=== PATIENT | female | born 1945 | race Caucasian/White ===

== ENCOUNTER → 2016-11-04 | Outpatient (CLI) | payer OTHER, MEDICARE | LOC: ULTRA 07:17 | DX: R16.0 Hepatomegaly, not elsewhere classified (principal); K83.1 Obstruction of bile duct; R10.9 Unspecified abdominal pain; R94.5 Abnormal results of liver function studies ==

== ENCOUNTER 2017-02-03 19:00 | Inpatient (IN) | payer OTHER, MEDICARE ==
[~2017-02-03] VITALS: Ht 175.3 cm; Wt 72.7 kg
--- NOTE | ~2017-02-03 | 2DMMODE ---
[facility] [place] [address] 2 D/M-MODE ECHOCARDIOGRAM Name: FARRAHMARK J Room #: 304-P [facility] IN .R.#: [id number] Admission: 02/03/17 Attend Phys: Richardson Solis, Discharge: Date of : 45 Date of Service: 02/07/17 1418 Report #: [id number] THIS REPORT FOR: //name// APPROVED REPORT Study performed: 02/07/2017 11:20:28 EXAM: Comprehensive 2D, Doppler, and color-flow Echocardiogram Patient Location: Echo lab Room #: [facility] Blood Pressure: 88/59 mmHg HR: 71 bpm Rhythm: NSR Other Information Study Quality: Good Indications Edema 2D Dimensions RVDd: 36.48 mm LVEF(%): 48.37 (>50%) IVSd: 9.03 (7-11mm) LVOT Diam: 19.74 (18-24mm) LVDd: 56.68 mm PWd: 10.46 (7-11mm) Ascending Ao: 39.39 (22-36mm) LVDs: 42.67 (25-40mm) Aortic Root: 32.05 mm Farah's LVEF: 48.37 % Volumes Left Atrial Volume (Systole) Single Plane 4CH: 67.86 mL Single Plane 2CH: 94.52 mL LA ESV Index: 47.00 mL/m2 Aortic Valve AoV Peak Deyvi.: 1.35 m/s AO Peak Gr.: 7.25 mmHg LVOT Max P.72 mmHg LVOT Max V: 0.96 m/s Mitral Valve E/A Ratio: 0.6 MV Decel. Time: 262.32 ms [facility] [place] [address] 2 D/M-MODE ECHOCARDIOGRAM Name: MARK YAN Room #: 304-P [facility] IN [facility].#: [id number] Admission: 02/03/17 Attend Phys: Richardson oSlis, Discharge: Date of : 45 Date of Service: 02/07/17 1418 Report #: [id number] MV E Max Deyvi.: 0.49 m/s MV A Deyvi.: 0.84 m/s MV PHT: 76.07 ms Pulmonary Valve PV Peak Deyvi.: 0.67 m/s PV Peak Gr.: 1.81 mmHg Tricuspid Valve TR Peak Deyvi.: 2.42 m/s TR Peak Gr.: 23.34 mmHg Left Ventricle Left ventricle is borderline dilated. Regional wall motion abnormalities are noted. There is normal left ventricular wall thickness. Left ventricular systolic function is mildly decreased. LVEF is 40-45%. Inferoseptal hypokinesis Grade I - abnormal relaxation pattern. Right Ventricle The right ventricle is normal size. The right ventricular systolic function is normal. Atria Left atrium is moderate to severely dilated. The right atrium size is normal. Aortic Valve Aortic valve is mildly calcified. Trace aortic regurgitation. There is no aortic valvular stenosis. Mitral Valve The mitral valve is mildly thickened. Mild to moderate mitral regurgitation. No evidence of mitral valve stenosis. Tricuspid Valve The tricuspid valve is normal in structure. There is mild to moderate tricuspid regurgitation. Estimated PAP is 23mmHg plus the right atrial pressure. Pulmonic Valve The pulmonary valve is normal in structure. There is no pulmonic valvular regurgitation. Great Vessels The aortic root is normal in size. The ascending aorta is mildly dilated. IVC is not well visualized. [facility] [address] [place] [address] 2 D/M-MODE ECHOCARDIOGRAM Name: FARRAHMARK J Room #: 304-P [facility] IN .R.#: [id number] Admission: 02/03/17 Attend Phys: Richardson Solis, Discharge: Date of : 45 Date of Service: 02/07/17 1418 Report #: [id number] Pericardium There is no pericardial effusion. <Conclusion> Left ventricle is borderline dilated. LVEF is 40-45%. Inferoseptal hypokinesis Left atrium is moderate to severely dilated. Aortic valve is mildly calcified. Trace aortic regurgitation. The mitral valve is mildly thickened. Mild to moderate mitral regurgitation. The tricuspid valve is normal in structure. There is mild to moderate tricuspid regurgitation. Estimated PAP is 23mmHg plus the right atrial pressure. The pulmonary valve is normal in structure. <ELECTRONICALLY SIGNED> By: Anand Brizuela MD 02/07/17 1418 1418 1418 Anand Brizuela MD /INF
--- NOTE | ~2017-02-03 | EKG ---
[place] [address] [address] [facility] [place] [address] ELECTROCARDIOGRAM REPORT Name: MARK YAN Room #: 304-P ADM IN M.R.#: [id number] Admission: 02/03/17 Attend Phys: Hector Araiza DO Discharge: Date of : 45 Report #: [id number] THIS REPORT FOR: //name// [facility] ED Test Date: 2017-02-03 Test Time: 19:12:09 Pat Name: MARK YAN Department: Room: 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 : 1945 Requested By: Jacque Garner Order Number: [id number] MD: Chauncey Lares Measurements Intervals [place] Rate: 94 P: 33 SD: 147 QRS: -54 QRSD: 115 T: 104 QT: 380 QTc: 476 Interpretive Statements Sinus rhythm Atrial premature complexes Left anterior fascicular block Probable anteroseptal infarct, old Cannot rule out inferior infarct, old No previous ECG available for comparison Electronically Signed On 02-05-2017 12:40:51 CDT by Chauncey Lares [email or web address] <ELECTRONICALLY SIGNED> By: Chauncey Lares MD, [facility] 02/05/17 1240 11 11 Chauncey Lares MD, [facility] /EPI
--- NOTE | ~2017-02-03 | H ---
[facility] [place] [address] HISTORY AND PHYSICAL Name: MARK YAN Room #: 304-P [facility] IN M.R.#: [id number] Admission: 02/03/17 Attend Phys: Richardson Solis MD Discharge: 02/07/17 Date of : 45 Report #: [id number] THIS REPORT FOR: //name// CC: Hecotr Araiza Richardson Solis DATE OF SERVICE: 02/03/2017 ATTENDING PHYSICIAN: Deshaun Thakur MD. PRIMARY CARE PHYSICIAN: Richardson Solis MD. CHIEF COMPLAINT: Weakness and lower extremity swelling. HISTORY OF PRESENT ILLNESS: The patient is a 71-year-old female who apparently has been having some progressive lower extremity weakness over the last few months to the point that she is mostly using a wheelchair. She normally is able to transfer herself in and out of her wheelchair and walk a few steps, but today she had a fall from her wheelchair while she was trying to transfer. She feels like her weakness is mostly in her legs. She has also had increasing bilateral lower extremity edema. Her PCP started her on Lasix about 6 weeks ago. She denies any numbness or tingling in her lower extremities. In the ER, her daughter did report to the staff that she is a daily drinker and that she has not been eating well at all lately and has been losing weight. The patient states that she is dieting and that is why she is losing weight. She has lost at least 50 pounds in the last 6 months. The patient denies any chest pain, denies any shortness of breath. She does have some numbness and tingling in her lower extremities that has been going on for some time. She had no complaints at this time. In the ER, she was noted to have some electrolyte abnormalities and because of her increasing weakness and concerns from the family, she was admitted for further treatment. PAST MEDICAL HISTORY: Hypothyroidism. PAST SURGICAL HISTORY: Cholecystectomy, appendectomy, tonsillectomy. ALLERGIES: No known drug allergies. HOME MEDICATIONS: Potassium 20 mEq daily, Lasix 40 mg daily, atropine eyedrops q.i.d., levothyroxine 100 mcg daily and vitamin D 1000 units b.i.d. SOCIAL HISTORY: The patient does admit that she drinks alcohol each evening, she says she has one glass each evening, which she estimates is around 6 ounces. She denies drinking throughout the day. She says she has had days where she does not drink and she does not experience any alcohol withdrawal symptoms. She lives at home with her spouse. She is an ex-smoker, having quit at the age of [address] [address] HISTORY AND PHYSICAL Name: MEMEYOLAMARK J Room #: 304-P [facility] IN M.R.#: [id number] Admission: 02/03/17 Attend Phys: Richardson Solis MD Discharge: 02/07/17 Date of : 45 Report #: [id number] after smoking 1 pack per day for 30 years. FAMILY HISTORY: Her mother had diabetes and thyroid cancer. Her father had CHF. REVIEW OF SYSTEMS: Twelve point review of systems was reviewed with the patient, otherwise negative unless stated in the HPI. PHYSICAL EXAMINATION: GENERAL: The patient is an alert female, in no acute distress. VITAL SIGNS: Temperature is 36.5, heart rate 97, respirations 19, blood pressure is 150/80, oxygen 97% on room air. HEENT: Right pupil is 3 mm and reactive. The left pupil is 5 mm and nonreactive, but she reports she does have a cataract there. Oral mucosa is pink and dry. NECK: No JVD noted. CARDIOVASCULAR: Normal S1, S2. No murmurs, rubs or gallops. RESPIRATORY: Breath sounds are clear bilaterally. No wheezing or rhonchi. Breathing is nonlabored. ABDOMEN: Soft, nontender, nondistended with positive bowel sounds. VASCULAR: She does have 1+ bilateral lower extremity edema. NEUROLOGIC: The patient is alert and oriented x 3. She is able to tell me where she is, the current month and year. She is able to follow commands. She is moving all extremities equally. No focal weakness noted. SKIN: She does have a few small papules on the left ankle that are possibly insect bites. There is none seen on the right lower extremity. There is significant erythema of the soles of both feet, which look like they have been peeling. There is no warmth to it, but she is tender. PSYCHIATRIC: The patient is calm and cooperative. LABORATORY DATA AND DIAGNOSTICS: 135, potassium 3.3, BUN 9, creatinine 0.7, glucose 56, magnesium 1.2. BNP 372 and UA showed 1+ ketones, negative leukocyte esterase and TSH level is 2.5, vitamin D level is 10.8 and chest x-ray showed minor atelectasis in the right lung base, there is a small nodule most likely calcified granuloma measuring 8 mm and there is no old images to compare. ASSESSMENT AND PLAN: 1. Generalized weakness. This has been somewhat progressive over the last month. We will need to have PT and OT evaluate. She may have increasing neuropathy due to some nutritional deficiencies as her vitamin D level is low. 2. Hypothyroidism. TSH level is within normal limits. Continue Synthroid. 3. Alcohol abuse. The patient does drink alcohol daily, her alcohol level is still 58. We will place her on alcohol withdrawal protocol with the banana bag and multivitamin and thiamine and monitor for any signs of withdrawal. 4. Hypokalemia, hypomagnesium and hypoglycemia. These are all being replaced. Follow labs. [facility] [place] [address] [place] [address] HISTORY AND PHYSICAL Name: MARK YAN Room #: 304-P [facility] M.R.#: [id number] Admission: 02/03/17 Attend Phys: Richardson Solis MD Discharge: 02/07/17 Date of : 45 Report #: [id number] 5. Rash to bilateral feet. This really does not look like any significant cellulitis. She is afebrile without leukocytosis, so we will hold off on any antibiotics at this time. 6. Deep venous thrombosis prophylaxis. Place sequential compression devices. We will continue to follow the patient closely throughout the hospitalization and make changes based on clinical status. <ELECTRONICALLY SIGNED> By: RYAN Das 02/10/17 0659 0618 0843 RYAN Das /nt
[2017-02-03 19:04] VITALS: BP 150/80
[2017-02-03] MEDS ORDERED: VITAMIN D1000 UNI1 PO (19:07)
[2017-02-03] MEDS ORDERED: POTASSIUM20 PO (19:07)
[2017-02-03] MEDS ORDERED: LASIX 40 MG TAB40 M2 PO (19:07)
[2017-02-03] MEDS ORDERED: LEVOTHYROXINE 0.1 MG PO (19:07)
[2017-02-03] MEDS ORDERED: ATROPINE 1% EYE D11 OPHTHALMIC (19:08)
[2017-02-03 19:23] LABS: BASOPHILS 1.1 % (0.0-2.0); EOSINOPHILS 0.5 % (0.0-3.0); HEMATOCRIT 31.6 % (37.0-47.0); HEMOGLOBIN 11.1 gm/dL (12.0-15.0); LYMPHOCYTES 23.7 % (24.0-44.0); MANUAL DIFF NO; MCV 99.9 fL (80.0-100.0); MONOCYTES 5.9 % (1.0-8.0); PLATELET COUNT 250 thou/uL (150-400); POLYS 68.8 % (36.0-66.0); RBC 3.16 mil/uL (4.20-5.00); RDW 18.4 % (10.5-14.5); WBC 8.7 thou/uL (4.0-11.0)
[2017-02-03 19:31] LABS: CALCIUM 8.7 mg/dL (8.5-10.1); CREATININE 0.7 mg/dL (0.6-1.0); POTASSIUM 3.3 mmol/L (3.5-5.1)
[2017-02-03 19:32] LABS: URINE BLOOD NEGATIVE (Negative); URINE COLOR YELLOW; URINE GLUCOSE-RANDOM* NEGATIVE (Negative); URINE KETONES 1+ (Negative); URINE LEUKOCYTES-REFLEX NEGATIVE (Negative); URINE PROTEIN (DIPSTICK) TRACE (Negative); URINE UROBILINOGEN >= 8.0 E.U./dl (0.2-1.0)
[2017-02-03 19:36] LABS: URINE BILIRUBIN NEGATIVE (Negative)
[2017-02-03 19:43] LABS: MAGNESIUM 1.2 mg/dL (1.8-2.4)
[2017-02-04 04:25] VITALS: BP 105/57
[2017-02-04 05:11] LABS: ALBUMIN 2.2 g/dL (3.4-5.0); CALCIUM 7.6 mg/dL (8.5-10.1); CREATININE 0.7 mg/dL (0.6-1.0); DIRECT BILIRUBIN 2.1 mg/dL (<0.1-0.3); MAGNESIUM 1.7 mg/dL (1.8-2.4); TOTAL BILIRUBIN 3.5 mg/dL (<0.1-1.0); TOTAL PROTEIN 5.7 g/dL (6.4-8.2)
[2017-02-04 05:22] LABS: POTASSIUM 2.1 mmol/L (3.5-5.1)
[2017-02-04 08:12] VITALS: BP 119/76
[2017-02-04 12:02] VITALS: BP 130/72
[2017-02-04 15:30] VITALS: BP 114/62
[2017-02-04 19:26] VITALS: BP 101/73
[2017-02-05 03:55] VITALS: BP 90/57
[2017-02-05 06:13] LABS: CALCIUM 8.3 mg/dL (8.5-10.1); CREATININE 0.9 mg/dL (0.6-1.0); POTASSIUM 3.4 mmol/L (3.5-5.1)
[2017-02-05 07:25] VITALS: BP 141/62
[2017-02-05 08:03] VITALS: BP 141/62
[2017-02-05 11:10] VITALS: BP 98/63
[2017-02-05 12:05] LABS: MAGNESIUM 1.9 mg/dL (1.8-2.4); POTASSIUM 3.5 mmol/L (3.5-5.1)
[2017-02-05 19:35] VITALS: BP 108/77
[2017-02-06 03:29] LABS: CALCIUM 8.1 mg/dL (8.5-10.1); CREATININE 0.8 mg/dL (0.6-1.0)
[2017-02-06 03:30] LABS: POTASSIUM 4.6 mmol/L (3.5-5.1)
[2017-02-06 03:50] VITALS: BP 101/69
[2017-02-06 09:07] VITALS: BP 119/76
[2017-02-06 12:44] VITALS: BP 116/75
[2017-02-06 17:53] VITALS: BP 86/54
[2017-02-06 18:03] VITALS: BP 93/65
[2017-02-06 19:03] VITALS: BP 86/50
[2017-02-07 04:11] VITALS: BP 146/74
[2017-02-07] MEDS ORDERED: MELATONIN5 M1 PO (07:35)
[2017-02-07] MEDS ORDERED: VITAMIN B-1100 M2 PO (07:35)
[2017-02-07] MEDS ORDERED: PEPCID20 MG PO (07:35)
[2017-02-07] MEDS ORDERED: PRENATAL PO (07:36)
[2017-02-07 07:56] VITALS: BP 128/87
[2017-02-07 09:41] LABS: ALBUMIN 2.3 g/dL (3.4-5.0); CALCIUM 8.8 mg/dL (8.5-10.1); CREATININE 0.8 mg/dL (0.6-1.0); MAGNESIUM 1.5 mg/dL (1.8-2.4); POTASSIUM 4.9 mmol/L (3.5-5.1); TOTAL BILIRUBIN 1.5 mg/dL (<0.1-1.0); TOTAL PROTEIN 5.6 g/dL (6.4-8.2)
[2017-02-07 11:34] VITALS: BP 88/59
[2017-02-07] MEDS ORDERED: MAGNESIUM OXID400 MG PO (15:02)
== END 2017-02-07 16:56 | DRG 641 ==
LOC: ER 19:00 → 3N 20:48 → EROBS 20:48 → 3N 21:57
PROVIDERS: Emergency Medicine; Family Medicine; Internal Medicine Endocrinology, Diabetes & Metabolism; Internal Medicine Geriatric Medicine; Nurse Practitioner Acute Care
DX: E87.6 Hypokalemia (principal); E44.1 Mild protein-calorie malnutrition; R53.81 Other malaise; E87.1 Hypo-osmolality and hyponatremia; R53.1 Weakness; F10.10 Alcohol abuse, uncomplicated; R21 Rash and other nonspecific skin eruption; E83.42 Hypomagnesemia; E03.9 Hypothyroidism, unspecified; E16.2 Hypoglycemia, unspecified; W18.39XA Other fall on same level, initial encounter; Y93.89 Activity, other specified; Z90.49 Acquired absence of other specified parts of digestive tract; Z83.3 Family history of diabetes mellitus; Z80.8 Family history of malignant neoplasm of other organs or systems; Z82.49 Family history of ischemic heart disease and other diseases of the circulatory system; Y92.89 Other specified places as the place of occurrence of the external cause; Y99.8 Other external cause status
CPT/HCPCS: 10096

== ENCOUNTER 2017-04-26 05:32 | Day surgery (SDC) | payer OTHER, MEDICARE ==
[~2017-04-26] VITALS: Ht 175.3 cm; Wt 69.2 kg
--- NOTE | ~2017-04-26 | S ---
[facility] [place] [address] SURGICAL PATH RPT PROCEDURE Name: MARK YAN Room #: DEP [facility] M.R.#: [id number] Admission: 04/26/17 Date of : 45 Discharge: 04/26/17 Report #: [id number] Path Case #: [id number] PATHOLOGY REPORT COLLECTION DATE: 04/26/2017 RECEIVED DATE: 04/26/2017 SUBMITTING PHYS: Dr. Bill Espitia OTHER PHYS: Dr. Joce Solis SPECIMEN(S) RECEIVED: A.Hernia sac * * * * * * * * * * * * FINAL DIAGNOSIS: Fibroadipose tissue,"hernia sac", repair: - Reactive changes along with congestion compatible with a hernia sac. PATHOLOGIST: Ankita Mcgowan M.D. REPORT ELECTRONICALLY SIGNED BY: Ankita Mcgowan M.D. DATE/TIME: 04/27/2017 15:24 * * * * * * * * * * * * GROSS PATHOLOGY: Received in formalin labeled "Mark Yan, hernia sac," is a piece of fibroadipose tissue measuring 3.4 x 2.0 x 1.4 cm. No nodules or lesions are identified. Patient Services Technician tissue is submitted in cassette A1. (KAH; 04/26/2017) CLINICAL HISTORY: Right inguinal hernia INITIAL CPT CODE(S): A; 19090 Professional services performed by [facility] at [facility] [address], [place] [address] Technical services performed by [facility] at [address] [place] [address], [address], [place] [address]. [facility] [address] [place] [address] SURGICAL PATH RPT PROCEDURE Name: MARK YAN Room #: DEP [facility] Luca.#: [id number] Admission: 04/26/17 Date of : 45 Discharge: 04/26/17 Report #: [id number] Path Case #: [id number] [address] PHONE: [phone] DIRECTOR: Darenll Villafana M.D. * * * END OF REPORT * * *
--- NOTE | ~2017-04-26 | O ---
[facility] [place] [address] OPERATIVE REPORT Name: MARK YAN Room #: DEP [facility].#: [id number] Admission: 04/26/17 Attend Phys: Bill Espitia MD, F Discharge: 04/26/17 Date of : 45 Report #: [id number] THIS REPORT FOR: //name// CC: Bill Solis MD DATE OF SERVICE: 04/26/2017 PREOPERATIVE DIAGNOSIS: Right inguinal hernia, reducible. POSTOPERATIVE DIAGNOSIS: Right indirect inguinal hernia. PROCEDURE: Open repair of right indirect inguinal hernia with Surgimesh. SURGEON: Bill Espitia M.D. WING MAILER MACHINE OPERATOR: Joce Edward M.D. INDICATIONS: A 72-year-old lady that has a 2-month history of progressive enlargement of a bulging mass in the right inguinal canal. This has been reducible and on recent examination by her primary care physician, he indicated the need for repair. She denies bowel symptomatology. OPERATIVE PROCEDURE: The patient had a thorough discussion of the procedure, benefits and risks. She gave informed consent to proceed. She was brought to the operating room suite and had satisfactory induction of general endotracheal anesthesia. The patient's entire lower abdomen was prepped and draped in usual sterile procedure with DuraPrep solution. Draping was completed. An Ioban was utilized in the draping procedure. After draping was completed, an appropriate timeout was then performed. Naropin 0.5% plain was injected at the level of the inguinal canal. A 6-7 cm transverse incision was performed. The external oblique was visualized. Naropin was placed under the external oblique and then the external oblique was opened to the level of the external ring. The structures at the level of the internal ring including the round ligament were also controlled. A large indirect hernia sac was present. This was dissected free from the pubic tubercle back to the level of the internal ring. The indirect hernia sac was opened and some fat was reduced back into the peritoneal cavity. The hernia sac was circumferentially ligated in a pursestring manner with 2-0 Prolene suture times 2. The redundant hernia sac was transected and sent for histologic evaluation. The repaired ligated hernia sac was easily reduced at the level of the internal ring. A piece of Surgimesh was fashioned to approximate the floor of the inguinal canal. It was sutured in place beginning at the pubic tubercle, sutured medially to the lateral border of the rectus sheath and the transversalis fascia. Laterally, the mesh was sutured to the symphysis pubis, the John's ligament and the inguinal ligament [address] [address] OPERATIVE REPORT Name: MARK YAN Room #: DEP [facility] Awilda#: [id number] Admission: 04/26/17 Attend Phys: Bill Espitia MD, F Discharge: 04/26/17 Date of : 45 Report #: [id number]. The patch was completely sutured medially and laterally to the underlying abdominis muscle. The external oblique muscle was then reapproximated with a running 2-0 PDS suture. Jacklyn's fascia was approximated with running 3-0 Vicryl, superficial subcutaneous tissue approximated with running 3-0 Vicryl. The skin margins were then approximated with subcuticular 4-0 Monocryl. Dermabond was applied. The estimated blood loss is less than 5 mL. All sponge and needle counts were correct at the end of the procedure. The patient subsequently returned to recovery room in stable and satisfactory condition. She was able to be discharged from recovery room with pain medicine and antiemetic medications. She will return to the office in 2 weeks for followup care. By: 1751 [id number] Bill Espitia MD, FACS /nt
[~2017-04-26 05:32] MED LIST: ATROPINE 1% EYE D11 OPHTHALMIC; B-121000 MC2 PO; DUREZOL5 ML OPHTHALMIC; FA-80.8 MG PO; LASIX 40 MG TAB40 M2 PO; LEVOTHYROXINE 0.1 MG PO; MAGNESIUM OXID400 MG PO; MELATONIN5 M1 PO; PEPCID20 MG PO; POTASSIUM20 PO; PRED FORTE 1% EY5 M1 OP; PRENATAL PO; PROBIOTIC1 EAC1 PO; VALACYCLOVIR1000 MG PO; VITAMIN B-1100 M2 PO; VITAMIN D 5050000 I1 PO; VITAMIN D1000 UNI1 PO
[2017-04-26 06:50] VITALS: BP 143/93
[2017-04-26 06:50] LABS: HEMOGLOBIN 10.9 gm/dL (12.0-15.0)
[2017-04-26 10:26] VITALS: BP 143/93
== END 2017-04-26 10:42 | disposition home or self-care (01) ==
LOC: TBA 05:32 → OR 05:32
PROVIDERS: Surgery
DX: K40.90 Unilateral inguinal hernia, without obstruction or gangrene, not specified as recurrent (principal); E03.9 Hypothyroidism, unspecified; Z87.891 Personal history of nicotine dependence; Z90.49 Acquired absence of other specified parts of digestive tract; Z98.890 Other specified postprocedural states
CPT/HCPCS: 50010; 50101; 50386; 50403; 50788; 51412; 54118; 56524; 56525; 56526; 62110; 62900; 70005

== ENCOUNTER → 2017-05-26 | Outpatient (CLI) | payer OTHER, MEDICARE | LOC: RAD 12:27 | DX: Z01.818 Encounter for other preprocedural examination (principal) ==

== ENCOUNTER 2017-06-06 05:23 | Inpatient (IN) | payer OTHER, MEDICARE ==
[2017-05-31 13:20] LABS: HEMATOCRIT 33.6 % (37.0-47.0); HEMOGLOBIN 11.3 gm/dL (12.0-15.0); MCH 32.9 pg (26.0-34.0); MCHC 33.6 g/dL (28.0-37.0); MCV 98.2 fL (80.0-100.0); RBC 3.42 mil/uL (4.20-5.00); RDW 13.7 % (10.5-14.5); WBC 6.3 thou/uL (4.0-11.0)
[2017-05-31 13:24] LABS: URINE BILIRUBIN NEGATIVE (Negative); URINE BLOOD NEGATIVE (Negative); URINE COLOR YELLOW; URINE GLUCOSE-RANDOM* NEGATIVE (Negative); URINE KETONES NEGATIVE (Negative); URINE LEUKOCYTES-REFLEX 1+ (Negative); URINE PROTEIN (DIPSTICK) NEGATIVE (Negative); URINE SPECIFIC GRAVITY >= 1.030 (1.003-1.035); URINE UROBILINOGEN 0.2 E.U./dl (0.2-1.0)
[2017-05-31 13:28] LABS: SQUAMOUS >10 Many /LPF (0-3); URINE WBC-REFLEX 6-15 Few /HPF (0-5)
[2017-05-31 13:28] LABS: ALBUMIN 3.9 g/dL (3.4-5.0)
[2017-05-31 13:29] LABS: CASTS None Seen /LPF (None Seen); CRYSTALS None Seen /LPF (None Seen); URINE RBC None Seen /HPF (0-2)
[2017-05-31 13:33] LABS: INR 1.1; PROTIME 11.1 Seconds (9.3-11.4)
[2017-06-06] VITALS (9 sets, daily range): BP systolic 94–130; BP diastolic 48–84
[~2017-06-06] VITALS: Ht 175.3 cm; Wt 67.6 kg
--- NOTE | ~2017-06-06 | EKG ---
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 : 1945 Requested By: Chris Wilcox Order Number: [id number] MD: Chauncey Lares Measurements Intervals [place] Rate: 65 P: 69 MA: 179 QRS: 83 QRSD: 118 T: 50 QT: 437 QTc: 455 Interpretive Statements Sinus rhythm Nonspecific intraventricular conduction delay Compared to ECG 02/03/2017 19:12:09 Atrial premature complex(es) no longer present Left anterior fascicular block no longer present Electronically Signed On 06-01-2017 7:53:17 CDT by Chauncey Lares [email or web address] <ELECTRONICALLY SIGNED> By: Chauncey Lares MD, [facility] 06/01/17 0753 1305 1305 Chauncey Lares MD, [facility] /EPI
--- NOTE | ~2017-06-06 | O ---
[facility] [place] [address] OPERATIVE REPORT Name: MARK YAN Room #: 407-P [facility] IN M.R.#: [id number] Admission: 06/06/17 Attend Phys: Chris Wilcox MD Discharge: 06/09/17 Date of : 45 Report #: [id number] THIS REPORT FOR: //name// CC: Richardson Wilcox DATE OF SERVICE: 06/06/2017 PREOPERATIVE DIAGNOSIS: Left hip degenerative joint disease, severe. POSTOPERATIVE DIAGNOSIS: Left hip degenerative joint disease, severe. PROCEDURE: Left total hip arthroplasty. SURGEON: Chris Wilcox MD. SHEET METAL LAYOUT WORKER: Lanette Snider. ANESTHETIC: General. INDICATIONS: See [facility] H and P. IMPLANTS UTILIZED: Used a Roxanna hip system. We used a Secur-Fit Max hip stem size 8. We used a 132 degree neck angle. We used a Tritanium hemispherical cluster shell with a Trident X3 elevated rim insert and a 36 mm anatomic head, +2.5 neck length. DESCRIPTION OF PROCEDURE: After adequate general anesthesia had been obtained, the patient was placed in lateral decubitus position. Hip and lower extremity was prepped and draped in the usual meticulous sterile fashion. Posterolateral incision was made, subQ divided sharply. Hemostasis obtained with electrocautery. The IT band gluteal fascia was divided. This layer was retracted with a Charnley retractor. Hip was internally rotated. The external rotators were detached at their insertion, tagged and retracted posteriorly. Capsular incision was made and likewise was tagged and retracted posteriorly. Hip was then dislocated. Soft tissue was removed from the base of the neck. Starter awl placed at the base of neck and advanced to canal. Canal was sequentially reamed to a size 8. Neck osteotomy performed. Attention directed to the acetabulum, was circumferentially exposed. Labrum was excised. Reamers were used to sequentially ream the acetabulum to a size 54. A good press fit was obtained with a 54 trial, so we reamed to 55, irrigated copiously and placed the shell in the appropriate position. The hip was irrigated once again and the liner placed, elevated the portion posteriorly. [facility] [address] [place] [address] OPERATIVE REPORT Name: MARK YAN Room #: 407-P [facility] IN M.R.#: [id number] Admission: 06/06/17 Attend Phys: Chris Wilcox MD Discharge: 06/09/17 Date of : 45 Report #: [id number] Attention was redirected to the femur. Femur was sequentially broached to a size 8 and excellent torsional stability was obtained. Trial reduction was performed with a +2.5 neck length reapproximation of leg lengths and had excellent stability parameters. We then removed the trial components, irrigated copiously, placed the stem and impacted the head. The hip was then reduced. At this point, we repaired the capsule and to the trochanter by placing the sutures through drill holes in the trochanter and tying them over a bone bridge. Drains were placed deep and superficial. The IT band gluteal fascia closed with combination of interrupted naobyx-hw-vwsmt #1 Vicryl as well as running #1 Tevdek. SubQ was closed with 2-0 Monocryl, skin closed with mary. Sterile compressive dressing was applied. <ELECTRONICALLY SIGNED> By: Chris Wilcox MD 06/13/17 1411 1226 1332 Chris Wilcox MD /nt
[2017-06-07 04:06] VITALS: BP 102/54
[2017-06-07 06:22] LABS: HEMATOCRIT 27.6 % (37.0-47.0); HEMOGLOBIN 9.5 gm/dL (12.0-15.0); MCH 33.3 pg (26.0-34.0); MCHC 34.6 g/dL (28.0-37.0); MCV 96.3 fL (80.0-100.0); RBC 2.86 mil/uL (4.20-5.00); RDW 13.3 % (10.5-14.5); WBC 6.8 thou/uL (4.0-11.0)
[2017-06-07 07:35] VITALS: BP 94/56
[2017-06-07 21:00] VITALS: BP 111/65
[2017-06-07 23:29] VITALS: BP 131/86
[2017-06-08 03:40] VITALS: BP 119/66
[2017-06-08 06:29] LABS: HEMATOCRIT 28.4 % (37.0-47.0); HEMOGLOBIN 9.9 gm/dL (12.0-15.0); MCH 33.4 pg (26.0-34.0); MCV 95.4 fL (80.0-100.0); RBC 2.98 mil/uL (4.20-5.00); WBC 9.4 thou/uL (4.0-11.0)
[2017-06-08 08:42] VITALS: BP 113/72
[2017-06-08 16:00] VITALS: BP 111/50
[2017-06-08 18:21] VITALS: BP 111/50
[2017-06-08 19:46] VITALS: BP 104/53
[2017-06-09 04:53] LABS: HEMATOCRIT 29.8 % (37.0-47.0); HEMOGLOBIN 10.2 gm/dL (12.0-15.0); MCH 32.9 pg (26.0-34.0); MCHC 34.3 g/dL (28.0-37.0); MCV 95.8 fL (80.0-100.0); RBC 3.11 mil/uL (4.20-5.00); WBC 10.1 thou/uL (4.0-11.0)
[2017-06-09 06:08] VITALS: BP 105/63
[2017-06-09 08:08] VITALS: BP 109/55
[2017-06-09 10:15] VITALS: BP 111/50
[2017-06-09 10:34] VITALS: BP 111/50
[2017-06-09] MEDS ORDERED: XARELTO10 MG PO (11:14)
[2017-06-09 11:25] VITALS: BP 111/50
[2017-06-09 13:41] VITALS: BP 111/50
== END 2017-06-09 14:03 | disposition home health service (06) | DRG 470 ==
LOC: 4N 05:23 → TBA 05:23 → PRE 12:01 → 4N 14:13 → ENTRNSPT 06-09 13:54 → EDTRNSPTSTS 06-09 13:57 → 4N 06-09 14:03
PROVIDERS: Orthopaedic Surgery
PROC: 0SRB0JZ Replacement of Left Hip Joint with Synthetic Substitute, Open Approach (ICD-10-PCS; principal; 2017-06-06)
DX: M16.12 Unilateral primary osteoarthritis, left hip (principal)
CPT/HCPCS: 10790; 50010; 50101; 50382; 50414; 50455; 50855; 50939; 51412; 51771; 53000; 55388; 56521; 56525; 56527; 56530; 57095; 62110; 62900; 70005

== ENCOUNTER 2017-12-23 06:21 | Inpatient (IN) | payer OTHER, MEDICARE ==
[~2017-12-23] VITALS: Ht 175.3 cm; Wt 70.3 kg
--- NOTE | ~2017-12-23 | EKG ---
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 : 1945 Requested By: Taye Godinez Order Number: [id number] MD: Chauncey Lares Measurements Intervals [place] Rate: 60 P: 29 NC: 180 QRS: -49 QRSD: 116 T: -9 QT: 431 QTc: 431 Interpretive Statements Sinus rhythm Left anterior fascicular block Left ventricular hypertrophy Borderline T abnormalities, inferior leads Compared to ECG 05/31/2017 13:05:27 Left anterior fascicular block now present Left ventricular hypertrophy now present T-wave abnormality now present Electronically Signed On 12-24-2017 13:41:37 CDT by Chauncey Lares [email or web address] <ELECTRONICALLY SIGNED> By: Chauncey Lares MD, [facility] 12/24/17 1341 0658 0658 Chauncey Lares MD, [facility] /EPI
--- NOTE | ~2017-12-23 | HC ---
[facility] [place] [address] CONSULTATION Name: MARK YAN Room #: 408-P [facility] IN M.R.#: [id number] Admission: 12/23/17 Attend Phys: Toño Samuel DO Discharge: Date of : 45 Report #: [id number] THIS REPORT FOR: //name// CC: Toño Solis MD DATE OF SERVICE: 12/23/2017 REASON FOR CONSULTATION: The patient is a 72-year-old woman with abdominal pain, nausea and vomiting. HISTORY OF PRESENT ILLNESS: This 72-year-old woman has been seen by Dr. Richardson Solis. Her major problem has been her left eye, which may have a toxoplasmosis infection. There is also concern of an ocular stroke about a year ago. She has been on fairly complex treatment with multiple medications including immune-suppressing agents as well as antibiotics. She was in usual state of health until the past 2-3 days when she developed some vague nausea symptoms. However, she was able to eat. She did not have any fever, chills or diarrhea. This morning, she awoke and had vomiting, had multiple episodes of emesis of nonbloody material. Due to these symptoms, in fact, she felt poorly. She presented to the Emergency Room at [facility]. LABORATORY DATA: Showed sodium of 141, potassium of 3.4, chloride of 103, CO2 of 27, BUN of 44 and creatinine of 4.4. Glucose was 108, calcium 9.5. Liver function studies were completely normal. Troponin less than 0.04, albumin 3.8, lipase was 1870. TSH was 1.884. White count was 9.6, hemoglobin of 12.1 with MCV of 94.9, platelet of 188,000. Her elevated creatinine was noted; interestingly, there was no prior history of kidney disease. However, she has been using 40 mg of furosemide daily for swelling in her ankles for the past 8 months. She has an elevated lipase of 1800; however, there is no history of pancreatitis. She consumed alcohol in the past and quit a number of years ago because she was told she was drinking too much. She did have evidence of fatty liver, but she has never had pancreatitis. She did have some vague abdominal pain this morning, mostly in the right lower abdomen just felt like an achy sensation, but not a severe pain. She did not have any back pain. There is no family history of pancreatitis or pancreatic cancer. PAST MEDICAL HISTORY: She is noted to be hypothyroid. 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 She has had degenerative joint disease. [address] [address] CONSULTATION Name: MARK YAN Room #: 408-P [facility] IN M.R.#: [id number] Admission: 12/23/17 Attend Phys: Toño Samuel DO Discharge: Date of : 45 Report #: [id number] PAST SURGICAL HISTORY: Cholecystectomy, appendectomy, T and A, teeth extraction and dentures, tubal ligation, right inguinal hernia repair and recent left hip replacement. ALLERGIES: She reports no known drug allergies. HOME MEDICATIONS: Include atropine eyedrops twice daily to left eye; vitamin D3; clindamycin 300 mg 4 times daily; vitamin B12; furosemide 40 mg daily; Lactobacillus daily; 20 mg daily; levothyroxine 0.1 mg daily; magnesium oxide 400 mg daily; potassium with 40 mEq daily; prednisolone eye drops every 6-8 hours; prednisone 20 mg daily, started about 6 days ago for her eye; vitamin; Daraprim; sulfadiazine 1000 mg 4 times daily; vitamin B 100 mg daily; sodium chloride eye drops. FAMILY HISTORY: Brother had colon cancer at age 55. No family history of pancreatic cancer. SOCIAL HISTORY: , has 4 children, alive and well. She quit smoking more than a year ago. She quit using alcohol more than a year ago. REVIEW OF SYSTEMS: GENERAL: No change in weight, fever or chills. CENTRAL NERVOUS SYSTEM: Possible ocular stroke. No other known strokes, weakness or numbness. HEENT: Possibly toxoplasmosis left eye and near blindness right eye due to lazy eye as a child. PULMONARY: Former smoker, no cough, pneumonia or tuberculosis. CARDIOVASCULAR: No chest pain, chest tightness or palpitations. GASTROINTESTINAL: No dysphagia or odynophagia. She did not have any hematemesis. Bowel habits have been regular. No rectal bleeding or melena. She has never had a colonoscopy. GENITOURINARY: No previous kidney problems, kidney stones, urinary tract infections. Creatinine was normal in the past. GYNECOLOGIC: No breast problems, vaginal bleeding or discharges. MUSCULOSKELETAL: Degenerative joint disease with total hip replacement. SKIN: Without rashes. PSYCHIATRIC: No depression, anxiety or bipolar illness. ENDOCRINE: Hypothyroid, not aware of diabetes problems. HEMATOLOGIC: No bleeding, bruising or malignancies. PHYSICAL EXAMINATION: RESPIRATORY: Well-developed, well-nourished, overweight woman, in no acute distress. VITAL SIGNS: Blood pressure 129/70, pulse 67. HEENT: Anicteric. Left pupil is dilated. It is noted she uses atropine [address] [place] [address] CONSULTATION Name: MARK YAN Room #: [facility]-P [facility] IN M.R.#: [id number] Admission: 12/23/17 Attend Phys: Toño Samuel DO Discharge: Date of : 45 Report #: [id number] eyedrops. Oropharynx is clear. She has dentures. NECK: Supple without thyromegaly. CHEST: Clear. HEART: Regular rate and rhythm, normal S1 and S2. ABDOMEN: Overweight. Normal bowel sounds, soft, nontender, without hepatosplenomegaly or masses. RECTAL: Not done. EXTREMITIES: Without cyanosis, clubbing, edema. NEUROLOGIC: Oriented to person, place, and time. Moves all 4 extremities well. ASSESSMENT: 1. Nausea and vomiting possibly due to gastroenteritis. 2. Elevated lipase, doubt employee's representative of acute pancreatitis. 3. Elevated creatinine, likely prerenal due to recurrent vomiting as well as long-term use of Lasix. This may also account for elevated lipase. 4. Toxoplasmosis of the left eye. 5. Blindness. 6. Family history of colon cancer, brother age 55. RECOMMENDATIONS: 1. Agree with hydration. 2. We will obtain an abdominal ultrasound at this point, consider a CT or MRCP depending on the clinical course. 3. Colonoscopy due to family history of colon cancer, would do as an outpatient after the acute episode has resolved. <ELECTRONICALLY SIGNED> By: Branden Jara MD 12/24/17 1408 [id number] Branden Jara MD /nt
--- NOTE | ~2017-12-23 | HC ---
[facility] [place] [address] CONSULTATION Name: MARK YAN Room #: 408-P [facility] IN ..#: [id number] Admission: 12/23/17 Attend Phys: Richardson Solis MD Discharge: 12/25/17 Date of : 45 Report #: [id number] THIS REPORT FOR: //name// CC: Toño Solis MD DATE OF SERVICE: 12/24/2017 ATTENDING PHYSICIAN: Toño Samuel DO REASON FOR CONSULTATION: Left ocular toxoplasmosis. HISTORY OF PRESENT ILLNESS: The patient is a 72-year-old white woman admitted through the Emergency Room with history of nausea and vomiting, abdominal discomfort that has improved today. The patient had developed acute kidney injury that has improved hydration. The patient relates that 6 months ago or thereabouts, she had a left eye biopsy at [facility] that revealed toxoplasmosis. For the last 6 weeks, she had been on treatment with Daraprim 50 mg p.o. daily, sulfadiazine 1 gram p.o. q.i.d., leucovorin 20 mg p.o. daily, clindamycin 150 mg [address] Felix, rand maker. The patient's eyesight on the left is almost nil. She is also using prednisolone eye drops to the left eye. PAST MEDICAL HISTORY: Hypothyroidism. Left eye toxoplasmosis. Cholecystectomy. Appendectomy. Teeth extraction. Tubal ligation. Right inguinal hernia repair. DRUG ALLERGIES: None listed. MEDICATIONS: She is on treatment with Daraprim 50 mg daily, leucovorin 20 mg daily, cholecalciferol, Lactobacillus acidophilus, vitamins, thiamine 100 mg daily, furosemide, potassium chloride, pantoprazole, levothyroxine, sulfadiazine, prednisolone eyedrops, clindamycin 300 mg p.o. q.i.d., magnesium supplementation, fentanyl p.r.n., acetaminophen p.r.n., prednisone 40 mg p.o. daily. She is on intravenous fluids. SOCIAL HISTORY: See H and P, old records. FAMILY HISTORY: See H and P, old records. REVIEW OF SYSTEMS: Nausea, vomiting, abdominal discomfort, improved. PHYSICAL EXAMINATION: GENERAL: Well-developed woman, not toxic looking. VITAL SIGNS: Temperature 99, pulse 68, respirations 18, BP 134/78. [address] [address] CONSULTATION Name: MARK YAN Room #: 408-P [facility] IN M.R.#: [id number] Admission: 12/23/17 Attend Phys: Richardson Solis MD Discharge: 12/25/17 Date of : 45 Report #: [id number] HEENT: Within range. Decreased eyesight, left. NECK: Supple, no thyromegaly. LUNGS: Clear. HEART: S1, S2. BREASTS: Deferred. ABDOMEN: Soft, no masses or megaly. PELVIC AND RECTAL: Deferred. EXTREMITIES: Normal. LABORATORY DATA: Sodium 141, potassium 3.4, BUN 44, creatinine 4.4. Renal function studies today revealed BUN to be 38, creatinine 3.9. The lipase was 1870 yesterday, normal today. Albumin 3.8 on admission, 2.9 g today. WBC 6.4, hemoglobin 10.7, platelets 154,000. White blood cell count differential normal, possibly dealing with dehydration. ASSESSMENT: 1. Nausea, vomiting, question etiology. 2. Prerenal azotemia. 3. History of left eye toxoplasmosis. SUGGESTIONS: Recommend to hold sulfadiazine, Daraprim and clindamycin. The patient will be reevaluated in the morning if renal function continues to improve. Dr. Fish will reevaluate the patient and establish need for continuation of treatment with anti-toxoplasma medications. Dr. Samuel, thank you for requesting my suggestions. <ELECTRONICALLY SIGNED> By: Reuben Aguilera MD 01/02/18 1026 [id number] Reuben Aguilera MD /nt
[~2017-12-23 06:21] MED LIST changes: +XARELTO10 MG PO
[2017-12-23 06:29] VITALS: BP 131/74
[2017-12-23] MEDS ORDERED: SULFADIAZINE500 MG PO (06:32)
[2017-12-23] MEDS ORDERED: PREDNISONE 20 M20 MG PO (06:33)
[2017-12-23] MEDS ORDERED: DARAPRIM25 MG PO (06:33)
[2017-12-23] MEDS ORDERED: LEUCOVORIN CALC10 MG PO (06:34)
[2017-12-23] MEDS ORDERED: CLEOCIN HCL150 MG PO (06:34)
[2017-12-23] MEDS ORDERED: PRED-FORTE OPHTH1 M1 (06:36)
[2017-12-23] MEDS ORDERED: [UNRECOGNIZED DRUG - OTHER] OPHTHALMIC (06:58)
[2017-12-23 07:00] LABS: ABSOLUTE NEUTROPHILS 7.7 thou/uL (1.4-8.2); ANION GAP 11 mmol/L (7-16); BASOPHILS 0.6 % (0.0-2.0); BUN 44 mg/dL (7-18); CALCIUM 9.5 mg/dL (8.5-10.1); CHLORIDE 103 mmol/L (98-107); CO2 27 mmol/L (21-32); CREATININE 4.4 mg/dL (0.6-1.0); EOSINOPHILS 0.3 % (0.0-3.0); GLUCOSE 108 mg/dL (74-106); HEMATOCRIT 35.9 % (37.0-47.0); HEMOGLOBIN 12.1 gm/dL (12.0-15.0); LYMPHOCYTES 12.8 % (24.0-44.0); MCHC 33.8 g/dL (28.0-37.0); MCV 94.9 fL (80.0-100.0); MONOCYTES 5.7 % (1.0-8.0); PLATELET COUNT 188 thou/uL (150-400); POLYS 80.6 % (36.0-66.0); POTASSIUM 3.4 mmol/L (3.5-5.1); RBC 3.78 mil/uL (4.20-5.00); RDW 16.4 % (10.5-14.5); SODIUM 141 mmol/L (136-145); WBC 9.6 thou/uL (4.0-11.0)
[2017-12-23] MEDS ORDERED: ATROPINE 0.01%-10 ML OPHTHALMIC (07:01)
[2017-12-23] MEDS ORDERED: CENTRUM SILVER1 EAC2 PO (07:07)
[2017-12-23] MEDS ORDERED: PROBIOTIC1 EAC1 PO (07:08)
[2017-12-23 07:09] LABS: ALBUMIN 3.8 g/dL (3.4-5.0); LIPASE 1870 U/L (73-393); SGOT 23 U/L (15-37); SGPT 18 U/L (30-65); TOTAL BILIRUBIN 0.3 mg/dL (<0.1-1.0); TOTAL PROTEIN 7.2 g/dL (6.4-8.2); TROPONIN-I < 0.04 ng/mL (<0.06)
[2017-12-23] MEDS ORDERED: VITAMIN D3400 UNIT PO (07:12)
[2017-12-23] MEDS ORDERED: VITAMIN B1 PO (07:12)
[2017-12-23 07:43] VITALS: BP 131/74
[2017-12-23 09:00] VITALS: BP 129/70
[2017-12-23] MEDS ORDERED: PRED FORTE 1% EY5 M1 (09:15)
[2017-12-23 16:25] VITALS: BP 126/71
[2017-12-23 17:14] VITALS: BP 150/51
[2017-12-23 19:44] VITALS: BP 129/72
[2017-12-24 03:54] VITALS: BP 134/78
[2017-12-24 05:59] LABS: ABSOLUTE NEUTROPHILS 4.2 thou/uL (1.4-8.2); BASOPHILS 1.7 % (0.0-2.0); EOSINOPHILS 1.6 % (0.0-3.0); HEMATOCRIT 31.3 % (37.0-47.0); HEMOGLOBIN 10.7 gm/dL (12.0-15.0); LYMPHOCYTES 23.6 % (24.0-44.0); MCH 32.6 pg (26.0-34.0); MCHC 34.3 g/dL (28.0-37.0); MONOCYTES 7.8 % (1.0-8.0); PLATELET COUNT 154 thou/uL (150-400); POLYS 65.3 % (36.0-66.0); RBC 3.29 mil/uL (4.20-5.00); RDW 16.7 % (10.5-14.5); WBC 6.4 thou/uL (4.0-11.0)
[2017-12-24 06:17] LABS: ALBUMIN 2.9 g/dL (3.4-5.0); CALCIUM 8.5 mg/dL (8.5-10.1); CREATININE 3.9 mg/dL (0.6-1.0); POTASSIUM 4.1 mmol/L (3.5-5.1); TOTAL BILIRUBIN 0.3 mg/dL (<0.1-1.0); TOTAL PROTEIN 5.8 g/dL (6.4-8.2)
[2017-12-24 08:13] VITALS: BP 137/81
[2017-12-24 15:39] VITALS: BP 125/72
[2017-12-24 20:12] VITALS: BP 135/81
[2017-12-25 04:00] VITALS: BP 129/88
[2017-12-25 08:40] VITALS: BP 133/85
[2017-12-25 09:25] LABS: CALCIUM 9.6 mg/dL (8.5-10.1); CREATININE 3.4 mg/dL (0.6-1.0); POTASSIUM 3.6 mmol/L (3.5-5.1)
== END 2017-12-25 14:18 | disposition home or self-care (01) | DRG 438 ==
LOC: ER 06:21 → 4N 07:20 → EROBS 07:20 → 4N 08:39 → ENTRNSPT 12-25 14:08 → EDTRNSPTTYP 12-25 14:13 → EDTRNSPTSTS 12-25 14:13 → 4N 12-25 14:18
PROVIDERS: Emergency Medicine; Family Medicine
DX: K85.90 Acute pancreatitis without necrosis or infection, unspecified (principal); N17.0 Acute kidney failure with tubular necrosis; B58.00 Toxoplasma oculopathy, unspecified; K52.9 Noninfective gastroenteritis and colitis, unspecified; E03.9 Hypothyroidism, unspecified; H54.8 Legal blindness, as defined in USA; N94.89 Other specified conditions associated with female genital organs and menstrual cycle; B39.9 Histoplasmosis, unspecified; Z96.642 Presence of left artificial hip joint; Z87.891 Personal history of nicotine dependence; Z90.49 Acquired absence of other specified parts of digestive tract; Z79.899 Other long term (current) drug therapy; Z80.0 Family history of malignant neoplasm of digestive organs
CPT/HCPCS: 10091

== ENCOUNTER → 2018-07-17 | Outpatient (CLI) | payer OTHER, MEDICARE ==
[~2018-07-17] MED LIST changes: +ATROPINE 0.01%-10 ML OPHTHALMIC; +CENTRUM SILVER1 EAC2 PO; +CLEOCIN HCL150 MG PO; +DARAPRIM25 MG PO; +LEUCOVORIN CALC10 MG PO; +PRED FORTE 1% EY5 M1; +PRED-FORTE OPHTH1 M1; +PREDNISONE 20 M20 MG PO; +SULFADIAZINE500 MG PO; +VITAMIN B1 PO; +VITAMIN D3400 UNIT PO; +[UNRECOGNIZED DRUG - OTHER] OPHTHALMIC
[2018-07-17 10:01] LABS: CREATININE 0.8 mg/dL (0.6-1.0)
== END ==
LOC: CAT 09:10
PROVIDERS: Specialist
DX: K57.30 Diverticulosis of large intestine without perforation or abscess without bleeding (principal); N20.0 Calculus of kidney; D12.3 Benign neoplasm of transverse colon; M47.816 Spondylosis without myelopathy or radiculopathy, lumbar region; E03.9 Hypothyroidism, unspecified; Z90.710 Acquired absence of both cervix and uterus